=== PATIENT | male | born 1965 | race Caucasian/White ===

== ENCOUNTER 2016-09-07 07:08 | Day surgery (SDC) | payer BC ==
[2016-09-03 16:54] VITALS: BMI 25.7
--- NOTE | 2016-09-07 08:09 | HP ---
Admitting History and Physical - Admission History of Present Illness: 50 yo male who presents today for left shoulder arthroscopy secondary to chronic pain. He denies any SOB, CP fever or cough. History Source: Patient Limitations to Obtaining History: No Limitations - Past Medical History ECOLOGICAL RISK ASSESSOR: No: Peripheral Neuropathy, Seizure Cardiovascular: No: Deep Vein Thrombosis, HTN Pulmonary: Yes: Other (smoker). No: Asthma, Sleep Apnea Gastrointestinal: Yes: GERD, GI Bleed (blood noted in stool, to have EGD completed, colonscopy ok in the past) Renal/: No: UTI Heme/Onc: No: Bleeding Disorder Psych: Yes: Bipolar - Past Surgical History Past Surgical History: Yes: Arthrosocopy (left knee) Additional Past Surgical History: hernia repair, right arm surgery with hardware placement and removal. Laminectomy with hardware in place. - Advance Directives Advance Directives: Yes: Living Will, Health Care Proxy - Smoking History Smoking history: Current every day smoker Have you smoked in the past 12 months: Yes Aproximately how many cigarettes per day: 20 - Alcohol/Substance Use Hx Alcohol Use: Yes (treated 2 yrs ago for alcohol use does not drink now) Home Medications - Allergies Allergies/Adverse Reactions: Allergies Allergy/AdvReac Type Severity Reaction Status Date / Time Penicillins Allergy Verified 09/03/16 16:54 - Home Medications Home Medications: Ambulatory Orders Acamprosate Calcium 3 tab PO BID 09/03/16 Cholecalciferol (Vitamin D3) [Vitamin D3 -] 1,000 unit PO DAILY 09/03/16 Fenofibrate Nanocrystallized [Tricor] 145 mg PO DAILY 09/03/16 Lamotrigine [Lamictal -] 200 mg PO DAILY 09/03/16 Loratadine [Claritin] 1 tab PO DAILY 09/03/16 Mv,Ca,Fe,Min/FA/Guarana/Caff [One Daily Tablet] 1 tab PO DAILY 09/03/16 [place]-3S/Dha/Epa/Fish Oil [Fish Oil 1,200 mg Softgel] 3 tab PO DAILY 09/03/16 Omeprazole 20 mg PO DAILY 09/03/16 Sertraline HCl [Zoloft -] 50 mg PO DAILY 09/03/16 Vitamin B Complex [B Complex] 1 tab PO DAILY 09/03/16 Review of Systems - Review of Systems Constitutional: denies: Chills, Fever Neck: denies: Decreased ROM, Pain on Movement Cardiovascular: denies: Chest Pain, Edema, Palpitations Respiratory: reports: SOB (occasional). denies: Cough Gastrointestinal: reports: Melena (plan for EGD). denies: Abdominal Pain Genitourinary: denies: Burning, Dysuria Musculoskeletal: reports: Joint Pain (left shoulder). denies: Joint Swelling Neurological: denies: Dizziness, Headache Hematology/Lymphatic: denies: Easily Bruised, Excessive Bleeding Physical Examination Vital Signs: Vital Signs Temperature 98 F 09/07/16 07:37 Pulse Rate 77 09/07/16 07:37 Respiratory Rate 18 09/07/16 07:37 Blood Pressure 131/79 09/07/16 07:37 O2 Sat by Pulse Oximetry (%) 98 09/07/16 07:37 Constitutional: Yes: Well Nourished, Calm Eyes: Yes: Conjunctiva Clear. No: Sclera Icterus HENT: Yes: WNL, Atraumatic, Normocephalic Neck: Yes: WNL, Supple, Trachea Midline Cardiovascular: Yes: WNL, Regular Rate and Rhythm Respiratory: Yes: WNL, Regular, CTA Bilaterally Gastrointestinal: Yes: WNL, Normal Bowel Sounds, Soft Musculoskeletal: Yes: Joint Stiffness (left shoulder). No: Joint Swelling Extremities: No: Calf Tenderness Edema: No Peripheral Pulses WNL: Yes Peripheral Pulses: Left Doralis Pedis: 2+, Right Dorsalis Pedis: 2+ Neurological: Yes: WNL, Alert, Oriented ...Motor Strength: WNL, LUE, LLE, RUE, RLE Psychiatric: Yes: WNL, Alert, Oriented Assessment/Plan 50 yo male with left shoulder arthritits, plan for arthroscopy today He remains npo IV abx at time of incisions DVT ppx with SCDs/early ambulation
[2016-09-07] MEDS ORDERED: MIDAZOLAM HCL 2 MG/2 ML SINGLE DOSE VIAL ONE (08:43)
[2016-09-07] MEDS ORDERED: DEXAMETHASONE SOD PHOSPHATE/PF 10 MG/ML SDV ONE (08:43)
[2016-09-07] MEDS ORDERED: ROPIVACAINE HCL 0.5% 30ML VIAL ONE (08:43)
[2016-09-07] MEDS ORDERED: oxyCODONE HCL 10 MG SUSTAINED ACTING TABLET PO ONE (09:00)
[2016-09-07] MEDS ORDERED: oxyCODONE HCL 5 MG TABLET PO PRN ×2 (09:00→11:00)
--- NOTE | 2016-09-07 09:03 | DS ---
Physical Examination Vital Signs: Vital Signs Temperature 98 F 09/07/16 07:37 Pulse Rate 77 09/07/16 07:37 Respiratory Rate 18 09/07/16 07:37 Blood Pressure 131/79 09/07/16 07:37 O2 Sat by Pulse Oximetry (%) 98 09/07/16 07:37 Discharge Summary Reason For Visit: LEFT SHOULDER AC JOINT OSTEOARTHRITIS Condition: Good - Instructions Diet, Activity, Other Instructions: Post Operative Instructions: Shoulder Arthroscopy Dr Brendon Short 1. Pain following a Shoulder Arthroscopy is variable and can be significant. Some patients will have more pain than others. You have been provided with a prescription for medication that contains a narcotic. You are not allowed to drive while on this medication. You should NOT take Tylenol (Acetaminophen) when taking the pain medication ( it will result in an overdose). Feel free to take medications such as Ibuprofen or Naprosyn in addition to the pain medicine if you do not have any problems with the NSAID class of medications. 2. Apply ice to the shoulder for 15 minutes every hour. You may continue this for as many days as necessary. 3. You may find sleeping on an incline (reclining chair) to be more comfortable for the first few days. 4. You may remove your sling when the arm is comfortable. 5. You may use the arm as tolerated. 6. You may remove the bandages in 48 hours. You may shower at that point. 7. Place band-aids on the sutures after your shower.Do not put any creams or lotions on the incision until after the sutures are removed. 8. Please call the office to schedule a visit to have your sutures removed. 9. If for any reason you believe you may have an infection or are concerned, please feel free to call me. I can be reached through our office number 24 hours a day. 10. Please call our office with any questions; we will review the surgical findings during your post-operative visit. Disposition: HOME - Home Medications Comprehensive Discharge Medication List: Ambulatory Orders Acamprosate Calcium 3 tab PO BID 09/03/16 Cholecalciferol (Vitamin D3) [Vitamin D3 -] 1,000 unit PO DAILY 09/03/16 Fenofibrate Nanocrystallized [Tricor] 145 mg PO DAILY 09/03/16 Lamotrigine [Lamictal -] 200 mg PO DAILY 09/03/16 Loratadine [Claritin] 1 tab PO DAILY 09/03/16 Mv,Ca,Fe,Min/FA/Guarana/Caff [One Daily Tablet] 1 tab PO DAILY 09/03/16 [place]-3S/Dha/Epa/Fish Oil [Fish Oil 1,200 mg Softgel] 3 tab PO DAILY 09/03/16 Omeprazole 20 mg PO DAILY 09/03/16 Sertraline HCl [Zoloft -] 50 mg PO DAILY 09/03/16 Vitamin B Complex [B Complex] 1 tab PO DAILY 09/03/16
--- NOTE | 2016-09-07 09:03 | OP ---
Operative Note - Note: Operative Date: 09/07/16 Pre-Operative Diagnosis: Left shoulder ACJ arthitis, cuff tendinosis Operation: LSA, distal clavicle resection, subacromial debridement Post-Operative Diagnosis: Same as Pre-op Surgeon: Brendon Short Anesthesia: General Operative Report Dictated: Yes
[2016-09-07] MEDS ORDERED: LACTATED RINGERS SOLUTION 1,000 ML IV SCH (09:30)
[2016-09-07] MEDS ORDERED: oxyCODONE HCL 10 MG SUSTAINED ACTING TABLET ONE (09:40)
[2016-09-07 10:14] VITALS: PULSE 72; TEMP 98
[2016-09-07 10:26] VITALS: BP 109/68
[2016-09-07] MEDS ORDERED: ONDANSETRON 4 MG/2 ML VIAL IVPUSH PRN (11:00)
[2016-09-07] MEDS ORDERED: PROMETHAZINE HCL 25 MG/1 ML VIAL IVPUSH PRN (11:01)
--- NOTE | 2016-09-07 13:42 | SURG ---
Surgery Acidity Tester Note Acidity Tester: Mary Alice Queen PA-C Date of Service: 09/07/16 Diagnosis: Left shoulder ACJ arthitis, cuff tendinosis Procedure: LSA, distal clavicle resection, subacromial debridement I was present for the entirety of the operative procedure. For further detail, please refer to operative report. Visit type - Case Type Case Type: Scheduled Admission - Emergency Emergency Visit: Yes Care time: The patient presented to the Emergency Department on the above date and was hospitalized for further evaluation of their emergent condition. - New patient This patient is new to me today: Yes Date on this admission: 09/07/16 - Critical Care Critical Care patient: No
--- NOTE | 2016-09-12 16:03 | PATH ---
Surgical Pathology Report Patient Name: IZABEL FRANCE Med. Rec. #: [id number] /Age/Gender: 1965 (Age: 50) / M Account: [id number] Location: [facility] Taken: 09/07/2016 Received: 09/07/2016 Reported: 09/12/2016 Physicians: Brendon Short M.D. Specimen(s) Received SHAVINGS LEFT SHOULDER Clinical History Left shoulder osteoarthritis Final Diagnosis SHOULDER, LEFT, ARTHROSCOPIC SHAVINGS: CARTILAGE, BONE, FIBROSYNOVIAL TISSUE AND SKELETAL MUSCLE. Electronically Signed Kaila Hernández M.D. Gross Description Received in formalin, labeled "shavings left shoulder," is a 3.0 x 2.2 x 0.4 cm. aggregate of ferrell-yellow soft tissue fragments. A banking representative portion is submitted in one cassette. /09/07/201609/07/2016
== END 2016-09-07 10:20 | disposition home or self-care (01) ==
LOC: FASU 07:08
PROVIDERS: ATTEND Orthopaedic Surgery
PROC: 0RBK4ZZ Excision of Left Shoulder Joint, Percutaneous Endoscopic Approach (ICD-10-PCS; 2016-09-07)
PROC: 0PBB4ZZ Excision of Left Clavicle, Percutaneous Endoscopic Approach (ICD-10-PCS; principal; 2016-09-07 08:36)
DX: M19.012 Primary osteoarthritis, left shoulder (principal); M75.52 Bursitis of left shoulder
CPT/HCPCS: 88304-TC

== ENCOUNTER 2017-08-23 06:57 | Day surgery (SDC) | payer BC, OTHER ==
[2017-08-16 09:12] VITALS: BMI 28.5
[2017-08-23] MEDS ORDERED: ROPIVACAINE HCL 0.5% 30ML VIAL ONE (08:15)
[2017-08-23] MEDS ORDERED: MIDAZOLAM HCL 2 MG/2 ML SINGLE DOSE VIAL ONE (08:15)
[2017-08-23] MEDS ORDERED: DEXAMETHASONE SOD PHOSPHATE/PF 10 MG/ML SDV ONE (08:15)
[2017-08-23] MEDS ORDERED: BUPIVACAINE HCL/EPINEPHRINE/PF 30 ML VIAL IJ ONE (08:30)
[2017-08-23] MEDS ORDERED: EPINEPHrine 1:1,000 1 MG/1 ML - 30ML VIAL (INJECTION) ONE (08:30)
--- NOTE | 2017-08-23 09:09 | HP ---
History & Physical Update - History History: No Change - Physical Physical: No Change - Assessment Assessment: No Change - Plan Plan: No Change (H&P in chart 08/01/[address] Short)
[2017-08-23] MEDS ORDERED: DEXAMETHASONE SOD PHOSPHATE 4 MG/1 ML VIAL ONE ×2 (09:21→09:52)
[2017-08-23] MEDS ORDERED: ceFAZolin SODIUM 1 GM VIAL ONE (09:21)
[2017-08-23] MEDS ORDERED: KETOROLAC TROMETHAMINE 30 MG/1 ML VIAL ONE (09:21)
[2017-08-23] MEDS ORDERED: ONDANSETRON 4 MG/2 ML VIAL ONE (09:21)
[2017-08-23] MEDS ORDERED: PROPOFOL 20 ML ONE ×5 (09:21)
[2017-08-23] MEDS ORDERED: ROCURONIUM BROMIDE 50 MG/5 ML VIAL ONE (09:30)
[2017-08-23] MEDS ORDERED: LIDOCAINE HCL/PF 2% SDV 5ML VIAL ONE (09:34)
[2017-08-23] MEDS ORDERED: oxyCODONE HCL 5 MG TABLET PO PRN ×3 (10:20→13:14)
[2017-08-23] MEDS ORDERED: oxyCODONE HCL 10 MG SUSTAINED ACTING TABLET PO ONE (10:20)
--- NOTE | 2017-08-23 10:25 | DS ---
Physical Examination Vital Signs: Vital Signs Temperature 98.1 F 08/23/17 07:20 Pulse Rate 79 08/23/17 07:20 Respiratory Rate 19 08/23/17 07:20 Blood Pressure 134/81 08/23/17 07:20 O2 Sat by Pulse Oximetry (%) 97 08/23/17 07:22 Discharge Summary Reason For Visit: LEFT SHOULDER RORATOR CUFF TENDINOSIS Condition: Good - Instructions Diet, Activity, Other Instructions: Post Operative Instructions: Shoulder Arthroscopy Dr Brendon Short 1. Pain following a Shoulder Arthroscopy is variable and can be significant. Some patients will have more pain than others. You have been provided with a prescription for medication that contains a narcotic. You are not allowed to drive while on this medication. You should NOT take Tylenol (Acetaminophen) when taking the pain medication ( it will result in an overdose). Feel free to take medications such as Ibuprofen or Naprosyn in addition to the pain medicine if you do not have any problems with the NSAID class of medications. 2. Apply ice to the shoulder for 15 minutes every hour. You may continue this for as many days as necessary. 3. You may find sleeping on an incline (reclining chair) to be more comfortable for the first few days. 4. You may remove your sling when the arm is comfortable. 5. You may use the arm as tolerated. 6. You may remove the bandages in 48 hours. You may shower at that point. 7. Place band-aids on the sutures after your shower.Do not put any creams or lotions on the incision until after the sutures are removed. 8. Please call the office to schedule a visit to have your sutures removed. 9. If for any reason you believe you may have an infection or are concerned, please feel free to call me. I can be reached through our office number 24 hours a day. 10. Please call our office with any questions; we will review the surgical findings during your post-operative visit. Disposition: HOME - Home Medications Comprehensive Discharge Medication List: Ambulatory Orders Cholecalciferol (Vitamin D3) [Vitamin D3 -] 1,000 unit PO DAILY 09/03/16 Fenofibrate Nanocrystallized [Tricor] 145 mg PO DAILY 09/03/16 Loratadine [Claritin] 1 tab PO DAILY 09/03/16 Mv-Mins/Folic Acid/Guarana/Caf [One Daily Tablet] 1 tab PO DAILY 09/03/16 [place]-3S/Dha/Epa/Fish Oil [Fish Oil 1,200 mg Softgel] 3 tab PO DAILY 09/03/16 Omeprazole 20 mg PO DAILY 09/03/16 Sertraline HCl [Zoloft -] 150 mg PO DAILY 09/03/16 Vitamin B Complex [B Complex] 1 tab PO DAILY 09/03/16 Simvastatin [Zocor -] 20 mg PO HS 08/16/17
--- NOTE | 2017-08-23 10:25 | OP ---
Operative Note - Note: Operative Date: 08/23/17 Pre-Operative Diagnosis: LEft shoulder partial cuff tear. Bursitis Post-Operative Diagnosis: Same as Pre-op Anesthesia: General Operative Report Dictated: Yes
[2017-08-23] MEDS ORDERED: oxyCODONE HCL 5 MG TABLET ONE ×2 (10:37)
[2017-08-23 10:41] VITALS: TEMP 97.6
[2017-08-23] MEDS ORDERED: oxyCODONE HCL 10 MG SUSTAINED ACTING TABLET ONE (11:30)
[2017-08-23 11:51] VITALS: BP 137/73; PULSE 78
[2017-08-23] MEDS ORDERED: ONDANSETRON 4 MG/2 ML VIAL IVPUSH PRN (13:14)
[2017-08-23] MEDS ORDERED: ACETAMINOPHEN 325 MG TABLET (FP) PO PRN (13:14)
[2017-08-23] MEDS ORDERED: LACTATED RINGERS SOLUTION 1,000 ML IV SCH (13:15)
--- NOTE | 2017-08-23 13:35 | SURG ---
Surgery Jv Baseball Coach Note Jv Baseball Coach: Mary Alice Queen PA-C Date of Service: 08/23/17 Diagnosis: LEft shoulder partial cuff tear. Bursitis Procedure: left shoulder arthroscopy, decompression I was present for the entirety of the operative procedure. For further detail, please refer to operative report. Visit type - Case Type Case Type: Scheduled - Emergency Emergency Visit: No - New patient This patient is new to me today: Yes Date on this admission: 08/23/17
--- NOTE | 2017-08-26 14:55 | PATH ---
Surgical Pathology Report Patient Name: IZABEL FRANCE Med. Rec. #: [id number] /Age/Gender: 1965 (Age: 51) / M Account: [id number] Location: [facility] Taken: 08/23/2017 Received: 08/23/2017 Reported: 08/26/2017 Physicians: Brendon Short M.D. Specimen(s) Received LEFT SHOULDER BURSA SHAVINGS Clinical History Left shoulder rotator cuff tendinosis Final Diagnosis SHOULDER BURSA, LEFT, ARTHROSCOPIC SHAVINGS: FIBROSYNOVIAL TISSUE AND SCANT BONE. Electronically Signed Kaila Hernández M.D. Gross Description Received in formalin, labeled "left shoulder bursa shavings," is a 3.4 x 3.0 x 0.3 cm. aggregate of ferrell-yellow soft tissue fragments. A direct customer service representative portion is submitted in one cassette. /08/23/2017 [place]/08/23/2017
== END 2017-08-23 11:45 | disposition home or self-care (01) ==
LOC: FASU 06:57
PROVIDERS: ATTEND Orthopaedic Surgery
PROC: 0RBK4ZZ Excision of Left Shoulder Joint, Percutaneous Endoscopic Approach (ICD-10-PCS; principal; 2017-08-23 09:00)
DX: M75.112 Incomplete rotator cuff tear or rupture of left shoulder, not specified as traumatic (principal); M75.52 Bursitis of left shoulder
CPT/HCPCS: 88304-TC

== ENCOUNTER 2018-02-14 06:43 | Day surgery (SDC) | payer OTHER, BC ==
[2018-02-05 16:59] VITALS: BMI 28.5
[2018-02-14] MEDS ORDERED: MIDAZOLAM HCL 2 MG/2 ML SINGLE DOSE VIAL ONE (08:11)
[2018-02-14] MEDS ORDERED: DEXAMETHASONE SOD PHOSPHATE/PF 10 MG/ML SDV ONE (08:11)
[2018-02-14] MEDS ORDERED: ROPIVACAINE HCL 0.5% 30ML VIAL ONE (08:11)
--- NOTE | 2018-02-14 08:42 | HP ---
History & Physical Update - History History: No Change - Physical Physical: No Change - Assessment Assessment: No Change - Plan Plan: No Change (full H&P in chart from 01/28/2018 and from medical physician on 02/05/2018)
[2018-02-14] MEDS ORDERED: BUPIVACAINE HCL/EPINEPHRINE/PF 30 ML VIAL IJ ONE (08:58)
[2018-02-14] MEDS ORDERED: EPINEPHrine 1:1,000 1 MG/1 ML - 30ML VIAL (INJECTION) ONE (08:58)
[2018-02-14] MEDS ORDERED: DEXAMETHASONE SOD PHOSPHATE 4 MG/1 ML VIAL ONE (09:15)
[2018-02-14] MEDS ORDERED: KETOROLAC TROMETHAMINE 30 MG/1 ML VIAL ONE (09:15)
[2018-02-14] MEDS ORDERED: ONDANSETRON 4 MG/2 ML VIAL ONE (09:15)
[2018-02-14] MEDS ORDERED: ceFAZolin SODIUM 1 GM VIAL ONE (09:15)
[2018-02-14] MEDS ORDERED: PROPOFOL 20 ML ONE ×5 (09:27→10:39)
[2018-02-14] MEDS ORDERED: oxyCODONE HCL 10 MG SUSTAINED ACTING TABLET PO ONE (11:09)
[2018-02-14] MEDS ORDERED: oxyCODONE HCL 5 MG TABLET PO PRN (11:09)
--- NOTE | 2018-02-14 11:12 | OP ---
Operative Note - Note: Operative Date: 02/14/18 Pre-Operative Diagnosis: Right shoulder massive, complex acute rotator cuff tear Operation: RSA, decompression, rotator cuff repair (acute traumatic tear) Post-Operative Diagnosis: Same as Pre-op Surgeon: Brendon Short Anesthesia: General Operative Report Dictated: Yes
--- NOTE | 2018-02-14 11:13 | DS ---
Physical Examination Vital Signs: Vital Signs Temperature 98.4 F 02/14/18 07:12 Pulse Rate 68 02/14/18 07:12 Respiratory Rate 16 02/14/18 07:12 Blood Pressure 129/97 02/14/18 07:12 O2 Sat by Pulse Oximetry (%) 97 02/14/18 07:22 Discharge Summary Reason For Visit: RIGHT SHOULDER ACUTE ROTATOR CUFF TEAR Condition: Good - Instructions Diet, Activity, Other Instructions: Post Operative Instructions: Shoulder Arthroscopy Dr Brendon Short 1. Pain following a Shoulder Arthroscopy is variable and can be significant. Some patients will have more pain than others. You have been provided with a prescription for medication that contains a narcotic. You are not allowed to drive while on this medication. You can take Tylenol (Acetaminophen) when taking the pain medication. Feel free to take medications such as Ibuprofen or Naprosyn in addition to the pain medicine if you do not have any problems with the NSAID class of medications. 2. Apply ice to the shoulder for 15 minutes every hour. You may continue this for as many days as necessary. 3. You may find sleeping on an incline (reclining chair) to be more comfortable for the first few days. 4. You must remain in your sling at all times except when showering. The only exception to this is to allow you to stretch your elbow a few times a day to prevent your hand and forearm from swelling. 5. You are not to use your arm to reach for anything, lift anything or carry anything until instructed otherwise. 6. You may remove the bandages in 48 hours. You may shower at that point. 7. Place band-aids on the glue after your shower.Do not put any creams or lotions on the incision until after the sutures are removed. 8. Please call the office to schedule a visit to have your sutures removed. 9. If for any reason you believe you may have an infection or are concerned, please feel free to call me. I can be reached through our office number 24 hours a day. 10. Please call our office with any questions; we will review the surgical findings during your post-operative visit. Disposition: HOME - Home Medications Comprehensive Discharge Medication List: Ambulatory Orders Cholecalciferol (Vitamin D3) [Vitamin D3 -] 1,000 unit PO DAILY 09/03/16 Fenofibrate Nanocrystallized [Tricor] 145 mg PO DAILY 09/03/16 Loratadine [Claritin] 1 tab PO DAILY 09/03/16 Mv-Mins/Folic Acid/Guarana/Caf [One Daily Tablet] 1 tab PO DAILY 09/03/16 [place]-3S/Dha/Epa/Fish Oil [Fish Oil 1,200 mg Softgel] 3 tab PO DAILY 09/03/16 Omeprazole 20 mg PO DAILY 09/03/16 Sertraline HCl [Zoloft -] 150 mg PO DAILY 09/03/16 Vitamin B Complex [B Complex] 1 tab PO DAILY 09/03/16 Simvastatin [Zocor -] 20 mg PO HS 08/16/17 Hydrocodone/Acetaminophen [Hydrocodone-Acetamin 7.5-325] 1 tab PO Q4H PRN
[2018-02-14] MEDS ORDERED: oxyCODONE HCL 10 MG SUSTAINED ACTING TABLET ONE (11:37)
[2018-02-14] MEDS ORDERED: oxyCODONE HCL 5 MG TABLET ONE (11:51)
[2018-02-14 12:08] VITALS: TEMP 98.5
[2018-02-14 13:09] VITALS: BP 124/76; PULSE 68
--- NOTE | 2018-02-14 16:36 | SURG ---
Surgery [facility] Department Supervisor Note [facility] Supervisor: Mary Alice Queen PA-C Date of Service: 02/14/18 Diagnosis: Right shoulder massive, complex acute rotator cuff tear Procedure: RSA, decompression, rotator cuff repair (acute traumatic tear) I was present for the entirety of the operative procedure. For further detail, please refer to operative report. Visit type - Case Type Case Type: Scheduled - Emergency Emergency Visit: No - New patient This patient is new to me today: Yes Date on this admission: 02/14/18
== END 2018-02-14 12:30 | disposition home or self-care (01) ==
LOC: FASU 06:43
PROVIDERS: ATTEND Orthopaedic Surgery
PROC: 0LQ14ZZ Repair Right Shoulder Tendon, Percutaneous Endoscopic Approach (ICD-10-PCS; principal; 2018-02-14 09:41)
PROC: 0RNJ4ZZ Release Right Shoulder Joint, Percutaneous Endoscopic Approach (ICD-10-PCS; 2018-02-14 09:41)
DX: M75.121 Complete rotator cuff tear or rupture of right shoulder, not specified as traumatic (principal)